=== PATIENT | female | born 1960 | race Caucasian/White ===

== ENCOUNTER 2020-10-17 10:37 | Emergency (ER) | payer OTHER ==
[~2020-10-17] VITALS: Ht 157.4 cm; Wt 131.0 kg
[2020-10-17] MEDS ORDERED: ONDANSETRON 4 MG (ZOFRAN) ORAL DISSOLVE TAB PO STA (11:15)
--- NOTE | 2020-10-17 11:29 | ED Abdominal Pain ---
General Stated Complaint: VOMITING/DIARRHEA Source of Information: Patient Exam Limitations: No Limitations History of Present Illness Date Seen by Provider: Oct 17, 2020 Time Seen by Provider: 10:38 Initial Comments This is a 59-year-old female who presents to the ER with complaints of itching on her upper extremities, nausea, vomiting. Symptoms started around 0430 this morning, she took two Benadryl which helped her itching but does not appear to be helping her vomiting and diarrhea. States she took one antidiarrheal pill but she still having multiple episodes of diarrhea. Allergies and Home Medications Allergies Coded Allergies: No Known Drug Allergies (Unverified , 10/17/20) Physical Exam Vital Signs Vital Signs - First Documented 10/17/20 11:52 Temp 36.3 Pulse 77 Resp 18 B/P (MAP) 133/82 (99) Pulse Ox 97 O2 Delivery Room Air Capillary Refill : Height/Weight/BMI Height: '" Weight: lbs. oz. kg; BMI Method: Progress/Results/Core Measures Results/Orders Lab Results Laboratory Tests Test 10/17/20 10:43 10/17/20 12:09 Range/Units Influenza Type A (RT-PCR) Not Detected Not Detecte Influenza Type B (RT-PCR) Not Detected Not Detecte SARS-CoV-2 RNA (RT-PCR) Not Detected Not Detecte White Blood Count 10.3 4.3-11.0 10^3/uL Red Blood Count 5.83 H 3.80-5.11 10^6/uL Hemoglobin 16.9 H 11.5-16.0 g/dL Hematocrit 51 35-52 % Mean Corpuscular Volume 87 80-99 fL Mean Corpuscular Hemoglobin 29 25-34 pg Mean Corpuscular Hemoglobin Concent 33 32-36 g/dL Red Cell Distribution Width 14.1 10.0-14.5 % Platelet Count 419 H 130-400 10^3/uL Mean Platelet Volume 11.0 9.0-12.2 fL Immature Granulocyte % (Auto) 1 % Neutrophils (%) (Auto) 90 H 42-75 % Lymphocytes (%) (Auto) 8 L 12-44 % Monocytes (%) (Auto) 2 0-12 % Eosinophils (%) (Auto) 0 0-10 % Basophils (%) (Auto) 0 0-10 % Neutrophils # (Auto) 9.2 H 1.8-7.8 10^3/uL Lymphocytes # (Auto) 0.8 L 1.0-4.0 10^3/uL Monocytes # (Auto) 0.2 0.0-1.0 10^3/uL Eosinophils # (Auto) 0.0 0.0-0.3 10^3/uL Basophils # (Auto) 0.0 0.0-0.1 10^3/uL Immature Granulocyte # (Auto) 0.1 0.0-0.1 10^3/uL Neutrophils % (Manual) 76 % Lymphocytes % (Manual) 13 % Monocytes % (Manual) 6 % Band Neutrophils 5 % Blood Morphology Comment NORMAL Sodium Level 141 135-145 MMOL/L Potassium Level 3.6 3.6-5.0 MMOL/L Chloride Level 103 98-107 MMOL/L Carbon Dioxide Level 19 L 21-32 MMOL/L Anion Gap 19 H 5-14 MMOL/L Blood Urea Nitrogen 31 H 7-18 MG/DL Creatinine 1.20 0.60-1.30 MG/DL Estimat Glomerular Filtration Rate 46 BUN/Creatinine Ratio 26 Glucose Level 195 H 70-105 MG/DL Calcium Level 9.8 8.5-10.1 MG/DL Corrected Calcium 9.5 8.5-10.1 MG/DL Total Bilirubin 0.5 0.1-1.0 MG/DL Aspartate Amino Transf (AST/SGOT) 20 5-34 U/L Alanine Aminotransferase (ALT/SGPT) 38 0-55 U/L Alkaline Phosphatase 80 40-136 U/L C-Reactive Protein High Sensitivity 2.64 H 0.00-0.50 MG/DL Total Protein 8.0 6.4-8.2 GM/DL Albumin 4.4 3.2-4.5 GM/DL My Orders Orders - OMAYRA SLAUGHTER APRN Ondansetron Oral Dissolve Tab (Zofran (10/17/20 11:15) Cbc With Automated Diff (10/17/20 11:35) Comprehensive Metabolic Panel (10/17/20 11:35) Hs C Reactive Protein (10/17/20 11:35) Ua Culture If Indicated (10/17/20 11:35) Diphenhydramine Injection (Benadryl Inje (10/17/20 12:00) Manual Differential (10/17/20 12:09) Ns Iv 1000 Ml (Sodium Chloride 0.9%) (10/17/20 13:30) Prednisone Tablet (Deltasone Tablet) (10/17/20 13:30) Medications Given in ED Current Medications Medications Dose Ordered Sig/Jen Route Start Time Stop Time Status Last Admin Dose Admin Diphenhydramine HCl 50 mg ONCE ONCE IVP 10/17/20 12:00 10/17/20 12:02 DC 10/17/20 12:22 50 MG Prednisone 10 mg ONCE ONCE PO 10/17/20 13:30 10/17/20 13:37 DC 10/17/20 13:46 10 MG Sodium Chloride 1,000 ml @ 999 mls/hr Q1H ONCE IV 10/17/20 13:30 10/17/20 14:30 10/17/20 13:46 999 MLS/HR Vital Signs/I&O 10/17/20 11:52 Temp 36.3 Pulse 77 Resp 18 B/P (MAP) 133/82 (99) Pulse Ox 97 O2 Delivery Room Air Progress Progress Note : Progress Note Patient presented to ED with COVID symptoms. Initiated swab while in waiting area due to bed capacity. Additionally reported no known allergies, she was given Zofran tablet ODT while waiting for persistent nausea/vomiting. Departure Impression Primary Impression: Allergic reaction Additional Impression: Dehydration Disposition: 01 HOME, SELF-CARE Condition: Improved Departure-Patient Inst. Decision time for Depature: 13:58 Patient Instructions: Dehydration, Adult ED, Allergic Reaction ED Add. Discharge Instructions: Plan: 1. Based on presentation this likely represents an allergic mediated response. However if you began to develop worsening symptoms, fever, difficulty drinking you can return to the ER or follow-up with your primary care provider. 2. Continue to use Benadryl every 4-6 hours today as needed for itching. You can take over the counter anti diarrheal medications. 3. Take Prednisone daily with food. Complete full course. Drink plenty of fluids. 4. Return to ER for any new, concerning, or worsening symptoms. OMAYRA SLAUGHTER ENDODONTIST Oct 17, 2020 11:29
[2020-10-17] MEDS ORDERED: diphenhydrAMINE 50 MG/ML INJ (BENADRYL) IVP ONE (12:00)
[2020-10-17 12:16] LABS: BASOPHILS % (AUTO) 0 % (0-10); EOSINOPHILS % (AUTO) 0 % (0-10); HEMATOCRIT 51 % (35-52); HEMOGLOBIN 16.9 g/dL (11.5-16.0); LYMPHOCYTES # (AUTO) 0.8 10^3/uL (1.0-4.0); LYMPHOCYTES % (AUTO) 8 % (12-44); MEAN CORPUSCULAR HEMOGLOBIN 29 pg (25-34); MEAN CORPUSCULAR HGB CONC 33 g/dL (32-36); MEAN CORPUSCULAR VOLUME 87 fL (80-99); MONOCYTES # (AUTO) 0.2 10^3/uL (0.0-1.0); MONOCYTES % (AUTO) 2 % (0-12); NEUTROPHILS # (AUTO) 9.2 10^3/uL (1.8-7.8); NEUTROPHILS % (AUTO) 90 % (42-75); PLATELET COUNT 419 10^3/uL (130-400); WHITE BLOOD COUNT 10.3 10^3/uL (4.3-11.0)
[2020-10-17 12:29] LABS: ALBUMIN 4.4 GM/DL (3.2-4.5); POTASSIUM 3.6 MMOL/L (3.6-5.0)
[2020-10-17 12:30] LABS: CALCIUM 9.8 MG/DL (8.5-10.1)
[2020-10-17 12:33] LABS: BILIRUBIN,TOTAL 0.5 MG/DL (0.1-1.0)
[2020-10-17 12:35] LABS: CREATININE SERUM 1.2 MG/DL (0.60-1.30)
[2020-10-17 12:46] LABS: BAND NEUTROPHILS 5 %; LYMPHOCYTES % (MANUAL) 13 %; MONOCYTES % (MANUAL) 6 %; NEUTROPHILS % (MANUAL) 76 %; RBC MORPH NORMAL
[2020-10-17] MEDS ORDERED: predniSONE 10 MG TAB PO ONE (13:30)
[2020-10-17] MEDS ORDERED: NS IV 1000 ML 1,000 ML IV ONE (13:30)
[2020-10-17 14:28] LABS: BILIRUBIN,URINE NEGATIVE (NEGATIVE); CLARITY,URINE CLEAR; COLOR,URINE YELLOW; GLUCOSE, URINE (UA) NEGATIVE (NEGATIVE); KETONES,URINE NEGATIVE (NEGATIVE); LEUKOCYTE ESTERASE ,URINE NEGATIVE (NEGATIVE); NITRITE,URINE NEGATIVE (NEGATIVE); PROTEIN,URINE NEGATIVE (NEGATIVE)
[2020-10-17 14:35] VITALS: BP 136/80
[2020-10-17 15:07] LABS: HYALINE CASTS, URINE >50 /LPF
[2020-10-17 15:09] LABS: AMORPHOUS SEDIMENT,UR MOD AMOR URATES /LPF; BACTERIA,URINE TRACE /HPF
== END 2020-10-17 14:37 | disposition home or self-care (01) ==
LOC: EDUNIT# 10:37 → ER 10:42
DX: T78.40XA Allergy, unspecified, initial encounter (principal); E86.0 Dehydration; Z20.822 Contact with and (suspected) exposure to COVID-19
CPT/HCPCS: 36415; 80053; 81000; 85007; 85027; 86141; 87636; 99284

== ENCOUNTER 2020-11-08 05:39 | Outpatient (RCR) | payer OTHER ==
[~2020-11-08] VITALS: Ht 157.5 cm; Wt 131.8 kg
[2020-11-08] MEDS ORDERED: METO50TA7 PO (14:49)
[2020-11-08] MEDS ORDERED: HYDR25TA4 PO (14:49)
[2020-11-08] MEDS ORDERED: AMLO-250 PO (14:49)
[2020-11-08] MEDS ORDERED: LISI20TA26 PO (14:49)
[2020-11-08] MEDS ORDERED: ROSU10TA22 PO (14:49)
[2020-11-08] MEDS ORDERED: FAMO-119 PO (14:49)
[2020-11-08] MEDS ORDERED: OXYC-556 PO (14:49)
[2020-11-08] MEDS ORDERED: LEVO100C4 PO (14:49)
== END 2020-11-08 15:36 | disposition home or self-care (01) ==
LOC: PREOP 05:39
PROVIDERS: ATTEND Surgery
DX: Z01.818 Encounter for other preprocedural examination (principal)

== ENCOUNTER 2020-11-15 11:30 | Day surgery (SDC) | payer OTHER ==
[~2020-11-15] VITALS: Ht 157.5 cm; Wt 131.8 kg
[~2020-11-15 11:30] MED LIST: AMLO-250 PO; FAMO-119 PO; HYDR25TA4 PO; LEVO100C4 PO; LISI20TA26 PO; METO50TA7 PO; OXYC-556 PO; ROSU10TA22 PO
[2020-11-15] MEDS ORDERED: LACTATED RINGERS 1,000 ML IV STA (11:34)
[2020-11-15] MEDS ORDERED: LACTATED RINGERS 1,000 ML IV ONE (11:35)
[2020-11-15] MEDS ORDERED: HURRICAINE EXT TUBE (BENZOCAINE) XX PRN (11:45)
--- NOTE | 2020-11-15 11:59 | Progress Note-Pre Operative ---
Pre-Operative Progress Note H&P Reviewed The H&P was reviewed, patient examined and no changes noted. Time Seen by Provider: 11:56 Date H&P Reviewed: Nov 15, 2020 Time H&P Reviewed: 11:56 Pre-Operative Diagnosis: Screening colon, N/V, weight loss, gastritis TAM SIERRA DO Nov 15, 2020 11:59
[2020-11-15 12:08] VITALS: BP 160/79
[2020-11-15] MEDS ORDERED: PROPOFOL INJECTION 50 ML IV ONE (12:47)
[2020-11-15 13:20] VITALS: BP 150/66
--- NOTE | 2020-11-15 13:24 | Anesthesia-General Post-Op ---
MAC Patient Condition Mental Status/LOC: Same as Preop Cardiovascular: Satisfactory Nausea/Vomiting: Absent Respiratory: Satisfactory Pain: Controlled Complications: Absent Post Op Complications Complications None Follow Up Care/Instructions Patient Instructions None needed. Anesthesiology Discharge Order Discharge Order Patient is doing well, no complaints, stable vital signs, no apparent adverse anesthesia problems. No complications reported per nursing. SHALINI CALIX CRNA Nov 15, 2020 13:24
[2020-11-15 13:25] VITALS: BP 137/61
--- NOTE | 2020-11-15 13:26 | Progress Note-Post Operative ---
Post-Operative Progess Note Surgeon (s)/Mercury Recoverer (s) Surgeon TAM SIERRA DO Mercury Recoverer: Joel Lee, MSIII Pre-Operative Diagnosis Screening colon, N/V, weight loss, gastritis Post-Operative Diagnosis Duodenitis Gastritis Hiatal hernia Changes at GE jxn polyps diverticula int hemorrhoids Procedure & Operative Findings Date of Procedure 11/15/20 Procedure Performed/Findings EGD with bx Colon with hot bx PROCEDURE NOTE: After informed consent was obtained, the patient was brought to the endoscopy suite, placed in bed in left lateral decubitus position. She was administered IV sedation by the FOLDER SEAMER who then monitored vitals the entire time, heart rate, blood pressure and pulse ox and the scope was inserted down the mouth through the esophagus into the stomach. On the way down, noted some mild esophagitis, took a picture, pushed into the stomach, pushed past the antrum into the duodenum. Duodenum looked inflamed with possibly some ulcers and a biopsy was done here. Pulled back and noted mild gastritis, did a biopsy of antrum. Then retroflexed the scope, saw small hiatal hernia, took a picture of this and then pulled the scope into the GE junction, and then did a biopsy of the GE junction. Pushed the scope back into the stomach, suctioned all the air out of the stomach. At this point pulled the scope up the esophagus and out the mouth. Switched camera, switched gloves, went down below andstarted the colonoscopy. Pushed all the way into about 130 cm to get all the way to cecum, took a picture of the appendiceal orifice and noted the ileocecal valve and then slowly withdrew the scope. Insufflating to look circumferentially at the hart starting in the cecum, up the ascending colon and found a small polyp; elected to do a hot biopsy of it. Then continued up to the hepatic flexure, then down the transverse colon where another polyp was seen; picture taken and hot biopsy done. Continued to the splenic flexure, into the descending colon, down into the sigmoid and finally into the rectum. Saw small diverticula in the descending and sigmoid colon; picture take. Finally retroflexed in the rectal vault, saw some minimal internal hemorrhoids and took a picture of this. The patient tolerated the procedure and she recovered in the endoscopy suite. Anesthesia Type IV sedation by FOLDER SEAMER Estimated Blood Loss Estimated blood loss (mL): scant Specimens/Packing Specimens Removed duodenal bx antral bx GE jxn bx Asc polyp transverse polyp TAM SIERRA DO Nov 15, 2020 13:26
--- NOTE | 2020-11-15 13:28 | Endoscopy Discharge Instruct ---
Endo Procedure/Findings Findings 1.: Gastritis, Other Findings (Duodenitis) 2.: Hiatal Hernia 3.: Polyp 4.: Diverticulosis, Internal Hemorrhoids Discharge Instructions - Activity: You might feel a little sleepy until tomorrow. This is due to the medicine you received to relax you. Until tomorrow, you should: NOT drive a car, operate machinery or power tools. NOT drink any alcoholic beverages. NOT make any important decisions or sign importortant papers. Do not return to work until tomorrow, unless otherwise instructed. Resume previous activities tomorrow. Diet: Start by taking liquids. If you tolerate liquids, advance to solid food. 1.: EGD in 1 year 2.: Colonscopy in 5 years Notify Physician - If you experience excessive bleeding, unusual abdominal pain, fever, or chest pain, contact your doctor immediately. TAM SIERRA DO Nov 15, 2020 13:28
[2020-11-15 13:30] VITALS: BP 137/61
[2020-11-15 13:49] VITALS: BP 135/60
== END 2020-11-15 13:52 ==
LOC: ENDO 11:30
PROVIDERS: ATTEND Surgery
DX: Z12.11 Encounter for screening for malignant neoplasm of colon (principal); D12.2 Benign neoplasm of ascending colon; K44.9 Diaphragmatic hernia without obstruction or gangrene; K29.50 Unspecified chronic gastritis without bleeding; K57.30 Diverticulosis of large intestine without perforation or abscess without bleeding; I10 Essential (primary) hypertension; E66.9 Obesity, unspecified; K64.8 Other hemorrhoids; K20.90 Esophagitis, unspecified without bleeding; Z79.899 Other long term (current) drug therapy; Z79.891 Long term (current) use of opiate analgesic; Z68.43 Body mass index [BMI] 50.0-59.9, adult; Z79.82 Long term (current) use of aspirin